=== PATIENT | female | born 1995 | race Caucasian/White ===

== ENCOUNTER 2022-08-15 08:23 | Outpatient (REF) | payer OTHER, SELFPAY ==
[2022-08-15 11:27] LABS: Hematocrit 43.9 % (37.0-47.0); Hemoglobin 14.4 g/dl (12.0-16.0); Mean Corpuscular HGB Conc 32.8 g/dl (31.0-35.0); Mean Corpuscular Hemoglobin 30.9 pg (27.0-33.0); Mean Corpuscular Volume 94.2 fL (80.0-98.0); Mean Platelet Volume 9.8 fL (9.4-12.3); Platelet Count 270 X10*3/uL (160-400); Red Blood Count 4.66 X10*6/uL (4.20-5.50); Red Cell Distribution Width 11.7 % (11.0-16.0)
[2022-08-15 12:12] LABS: Erythrocyte Sedimentation Rate 2 MM/HR (0-20)
[2022-08-15 12:49] LABS: Alanine Aminotransferase 18 U/L (0-31); Albumin Level 4.1 g/dL (3.5-5.0); Alkaline Phosphatase 59 U/L (39-117); Aspartate Amino Transferase 18 U/L (5-31); Bilirubin Direct 0.3 mg/dL (0.0-0.5); Bilirubin Total 0.9 mg/dL (0.0-1.0); Blood Urea Nitrogen 12 mg/dL (9-16); Chloride 103 mmol/L (96-108); Estimated Glomerular Filt Rate > 60; Glucose Random 79 mg/dL (60-115); Potassium 3.8 mmol/L (3.3-5.1); Sodium 140 mmol/L (135-145); Total Protein 6.7 g/dL (6.5-8.0)
[2022-08-15 13:07] LABS: Anion Gap 13 (12-20); Carbon Dioxide 27 mmol/L (22-29)
== END 2022-08-15 08:24 | disposition home or self-care (01) ==
LOC: HO.HMGCLDS 08:23
PROVIDERS: PCP Internal Medicine; Visit Provider Internal Medicine
DX: R10.9 Unspecified abdominal pain (principal)
CPT/HCPCS: 36415; 80048; 80076; 85027; 85652

== ENCOUNTER 2022-10-22 14:22 | Outpatient (AMB) | payer OTHER, SELFPAY ==
--- NOTE | 2022-10-22 15:53 | MHC.OFFWIV ---
Intake Vital Signs 10/22/22 15:55 Height 5 ft 5 in Weight 139 lb BMI 23.1 BP 112/74 Blood Pressure Location Lt brachial Position Sitting Pulse 53 Pulse Source Pulse Oximeter Temp 97.8 F Temp Source Temporal Artery Scan Pulse Oximetry (%) 97 Oxygen Delivery Method Room Air Intake Visit Reasons: EP, abdominal pain, not feeling better` Intake Note: pt is here for c/o upper abd pain, bloating, and states its worse at night and has diarrhea. patient states she was seen in july had blood work and everything came back normal but states nothing has changed. Patient Tobacco Use Status: Never used Tobacco Allergies No Known Allergies Allergy (Verified 10/23/22 06:37) Do you need a note to return to daycare/school/sports/work: No HPI EP, abdominal pain, not feeling better` HPI Details 27-year-old female presents to the office for a sick visit. Patient is been having intermittent abdominal pain for the past month. Initially was treated as an infection, patient reports that the sharp pain subsided but still continues to wake up at night. Mostly she has a cramping sensation. No nausea or vomiting. No weight loss. No fevers or chills. PFSH Social History Patient Tobacco Use Status: Never used Tobacco Physical Exam Vital Signs: Last Vital Signs Temp 97.8 F 10/22/22 15:55 Pulse 53 10/22/22 15:55 BP 112/74 10/22/22 15:55 Pulse Ox 97 10/22/22 15:55 Oxygen Delivery Method Room Air 10/22/22 15:55 BMI result Body Mass Index 23.1 Const General: cooperative and healthy appearing Nutritional Appearance: well nourished Orientation/consciousness: patient oriented x3 Limitations: no limitations HEENT Head: Yes normal to inspection Eyes General: appearance normal, both eyes and all related structures Neck Neck: Yes normal visual inspection Chest Chest palpation & inspection: normal palpation of entire chest wall Resp Effort & Inspection: normal respiratory effort Neuro General: patient oriented x3 Assessment & Plan Assessment & Plan (1) Abdominal pain: Code(s): R10.9 - Unspecified abdominal pain Plan: Patient should be worked up for irritable bowel syndrome. I suggested that she see her primary care and get a referral to a consultative sales associate. Meanwhile PPIs have been added for symptomatic relief. Medications: New pantoprazole 40 mg PO DAILY 30 tabs 0RF Coding Level of Care Code Est Pt Level 3 (25594) Diagnoses Abdominal pain R10.9
[2022-10-22 15:55] VITALS: BP 112/74; PULSE 53; TEMP 36.6; O2SAT 97; BMI 23.1
== END 2022-10-22 16:16 | disposition home or self-care (01) ==
PROVIDERS: PCP Internal Medicine; Visit Provider Internal Medicine
DX: R10.9 Unspecified abdominal pain (principal)
CPT/HCPCS: 99213

== ENCOUNTER 2022-11-11 09:39 | Outpatient (AMB) | payer OTHER, SELFPAY ==
[2022-11-11 10:34] VITALS: BP 110/70; PULSE 88; O2SAT 99; BMI 23.1
--- NOTE | 2022-11-11 10:34 | MHC.PC.OV ---
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 Intake Note: Pt is here today as a New Patient c/o stomach issues and abdominal cramping Allergies No Known Allergies Allergy (Verified 12/08/22 00:25) Medication List - Last Reconciled 11/11/22 by Beatriz Wright MD norgestimate-ethinyl estradiol 0.25-35 mg-mcg 1 tab PO DAILY Tobacco use date assessed: 11/11/22 Dental Screening Dental Screen Date: 11/11/22 Did you have a dental visit in the last 12 months?: Yes Did you have a dental problem in the last 6 months where you did not have access to dental care?: No Was dental information given to patient?: 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 She has been having intermittent episodes of abdominal cramping accompanied by occasional loose stools, bloating sensation, which has been present now for the last several weeks. Currently sees Dr. Carrasco for her routine Pap and pelvic exam, currently up-to-date, [facility] Medical History (Updated 11/11/22 @ 11:07 by Beatriz Wright MD) Abdominal bloating with cramps ASCUS of cervix with negative high risk HPV Surgical History (Updated 11/11/22 @ 11:07 by Beatriz Wright MD) No pertinent past surgical history Family History (Updated 11/11/22 @ 11:06 by Beatriz Wright MD) Other No significant family history Social History Housing: House Patient Tobacco Use Status: Never used Tobacco e-Cigarette/Vaping Use: Never Used service: No Current occupational status: employed Cognitive needs: No Hearing needs: No Vision needs: Yes Female Reproductive History Menstrual Date of last menstrual period: 10/27/22 Questionnaire PHQ-9 Over the last 2 weeks, how often have you been bothered by any of the following problems? 1. Little interest or pleasure in doing things: not at all 2. Feeling down, depressed, or hopeless: not at all 3. Trouble falling or staying asleep, or sleeping too much: several days 4. Feeling tired or having little energy: not at all 5. Poor appetite or overeating: not at all 6. Feeling bad about yourself - or that you are a failure or have let yourself or your family down: not at all 7. Trouble concentrating on things, such as reading the newspaper or watching television: not at all 8. Moving or speaking so slowly that other people could have noticed. Or the opposite - being so fidgety or restless that you have been moving around a lot more than usual: not at all 9. Thoughts that you would be better off or of hurting yourself in some way: not at all Total score: 1 Depression Screening Interpretation: Negative 28611 - PHQ-9 Billing: Yes Source: Developed by Drs. Jonn Pereyra, Sandra Watson, Kevyn Garcia and colleagues, with an educational breanna from [employer]. Thrive Questionnaire Date Thrive assessed: 11/11/22 I am a: Patient What is your living situation today?: I have a steady place to live Within the past 12 months, did the food you bought not last and you didn't have the money to get more?: Never true Within the past 12 months, did you worry whether your food would run out before you got money to buy more?: Never true Do you have trouble paying for medicines?: No Do you have trouble getting transportation to medical appointments?: No Do you have trouble paying your heating and electricity bill?: No Do you have trouble with day-to-day activities such as bathing, preparing meals, shopping, managing finances, etc.?: No Are you currently unemployed and looking for a job?: No Are you interested in more education?: No AUDIT C Alcohol Use Questionnaire (AUDIT-C) 1. How often do you have a drink containing alcohol?: Monthly or less 2. How many drinks containing alcohol do you have on a typical day when you are drinking?: 1 or 2 3. How often do you have six or more drinks on one occasion?: Never Total Score: 1 ALAYNA-7 AMB Questionnaire ALAYNA-7 Date ALAYNA - 7 assessed: 11/11/22 Feeling nervous, anxious, or on edge: 1 = Several days Not being able to stop or control worryin = Not at all Worrying too much about different things: 1 = Several days Trouble relaxin = Not at all Being so restless that it is hard to sit still: 0 = Not at all Becoming easily annoyed or irritable: 0 = Not at all Feeling afraid as if something awful might happen: 0 = Not at all Total ALAYNA-7 score (0-4 normal; 5-9 mild; 10-14 moderate; 15-21 severe): 2 Source: Developed by Drs. Jonn Pereyra, Sandra Watson, Kevyn Garcia and colleagues, with an educational breanna from [employer]. Review of Systems Const Denies body aches, Denies fatigue, Denies fever(s), Denies headache(s) and Denies weakness Eyes Denies change in vision, Denies eye discharge and Denies itchy eyes ENT Denies dizziness, Denies headache(s), Denies nasal congestion, Denies nasal discharge and Denies sore throat Card Denies chest pain, Denies lightheadedness, Denies palpitations and Denies dyspnea Resp Denies chest congestion, Denies cough, Denies dyspnea and Denies wheezing GI Reports as per HPI, Denies melena, Denies hematochezia and Denies heartburn Denies hematuria, Denies urinary frequency, Denies dysuria and Denies urinary urgency Musc Reports no additional complaints Skin/Breast Denies breast pain, Denies breast mass, Denies lesions and Denies rash Neuro Denies dizziness, Denies headache(s) and Denies weakness Psych Reports no additional complaints Endo Denies fatigue, Denies polydipsia, Denies polyuria and Denies palpitations Dioni/Lymph Denies easy bruising Aller/Immun Denies itchy eyes, Denies seasonal rhinorrhea and Denies wheezing Physical exam (Primary Care) Vital Signs: Last Vital Signs Pulse 88 11/11/22 10:34 BP 110/70 11/11/22 10:34 Pulse Ox 99 11/11/22 10:34 Oxygen Delivery Method Room Air 11/11/22 10:34 BMI result Body Mass Index 23.1 Tobacco/Smoking Status: Tobacco use Status Tobacco use date assessed 11/11/22 11/11/22 10:41 Patient Tobacco Use Status Never used Tobacco 11/11/22 10:41 e-Cigarette/Vaping Use Never Used 11/11/22 10:41 PHQ-9: PHQ-9 Score PHQ-9: Total score 1 12/07/22 17:59 Depression Screening Interpretation: Negative Thrive Assessment: Date of Thrive Assessment Date Thrive assessed 11/11/22 11/11/22 10:41 Const General: no acute distress and alert Orientation/consciousness: patient oriented x3 HENMT Head: Yes normocephalic Ears: external ears normal, TM's normal bilaterally and EAC's normal General nose exam: Normal external nose present and No nasal discharge present Face and sinus: Yes face symmetric Mouth: Normal oral and palatal mucosa present and moist mucous membranes Eyes General: appearance normal, both eyes and all related structures Eyelids: Yes eyelids normal Conjunctivae: conjunctivae normal Sclerae: sclerae normal Pupils: Equal, round and reactive pupils present EOM: EOMs intact bilaterally Neck Neck: Yes full ROM, Yes no lymphadenopathy and Yes supple Thyroid: Thyroid normal Chest Breast/axilla palpation: normal palpation of the breasts Resp Effort & Inspection: normal respiratory effort and able to speak in complete sentences Auscultation: clear to auscultation bilaterally Cardio Rate: regular rate Rhythm: regular rhythm Heart sounds: S1 normal heart sound present and S2 normal heart sound present GI Palpation (GI): Soft to palpation, nontender, no guarding and no masses Auscultation: normal bowel sounds General: Yes no CVA tenderness and Yes deferred (Goes to Dr. Carrasco who does her regular pelvic and Pap exam) Back/Spine/Pelvis Back: no CVA tenderness and No back tenderness Skin General skin exam: no rashes or lesions noted Neuro General: patient oriented x3, gait normal, moves all extremities, Normal light touch and pain sensation, no focal motor deficits and CN's II-XI intact bilaterally Cranial nerves: Yes Equal, round and reactive pupils present Cognition (Neuro): normal cognition Gait exam (Neuro): Normal gait present Motor exam (neuro): 5/5 motor strength present throughout Extrem General: Yes normal to inspection, Yes full ROM, Yes no joint enlargement, Yes no pedal edema and Yes normal gait Psych Appearance: grossly normal and well kempt Mental Status: mental status grossly normal Speech and movement: Normal speech and movement present Affect: normal affect Attitude: cooperative Thought process: Normal thought process present Thought content: Normal thought content present Assessment and Plan Assessment & Plan (1) Abdominal bloating with cramps: Code(s): R14.0 - Abdominal distension (gaseous); R10.9 - Unspecified abdominal pain Plan: Advised increase dietary fiber intake, to avoid dairy, trial of dicyclomine 10 mg per tablet to initially take 1 tablet twice a day . Ordered abdominal ultrasound, Gastroenterology consult also obtained (2) History of abnormal cervical Pap smear: Code(s): Z87.42 - Personal history of other diseases of the female genital tract Plan: Followed by her OBGYNDr. Carrasco Orders: Orders Vitamin D 25-OH Total 11/12/22 R14.0 - Abdominal distension (gaseous), R10.9 - Unspecified abdominal pain Comprehensive [place]. Panel Fast 11/12/22 R14.0 - Abdominal distension (gaseous), R10.9 - Unspecified abdominal pain Lipid Panel 11/12/22 R14.0 - Abdominal distension (gaseous), R10.9 - Unspecified abdominal pain US abdomen complete 11/11/22 R14.0 - Abdominal distension (gaseous), R10.9 - Unspecified abdominal pain Referrals Gastroenterology Referral R14.0 - Abdominal distension (gaseous), R10.9 - Unspecified abdominal pain Medications: New dicyclomine 10 mg PO BID 60 caps 0RF Coding Level of Care Code New Pt Level 3 (02658) Diagnoses Abdominal bloating with cramps R14.0; R10.9 History of abnormal cervical Pap smear Z87.42
== END 2022-11-11 11:18 | disposition home or self-care (01) ==
PROVIDERS: Visit Provider Internal Medicine
DX: R14.0 Abdominal distension (gaseous) (principal); R10.9 Unspecified abdominal pain; Z87.42 Personal history of other diseases of the female genital tract
CPT/HCPCS: 99203

== ENCOUNTER 2022-11-12 07:24 | Outpatient (REF) | payer OTHER, SELFPAY ==
[2022-11-12 12:36] LABS: Alanine Aminotransferase 13 U/L (0-31); Albumin Level 4.3 g/dL (3.5-5.0); Alkaline Phosphatase 52 U/L (39-117); Anion Gap 13 (12-20); Aspartate Amino Transferase 19 U/L (5-31); Bilirubin Total 0.7 mg/dL (0.0-1.0); Blood Urea Nitrogen 11 mg/dL (9-16); Calcium 10.1 mg/dL (8.4-10.2); Carbon Dioxide 25 mmol/L (22-29); Chloride 107 mmol/L (96-108); Cholesterol 160 mg/dL (<200); Estimated Glomerular Filt Rate > 60; Glucose Fasting 87 mg/dL (60-99); HDL Cholesterol 80 mg/dL (>40); LDL Cholesterol Calculated 62 mg/dL (<100); Potassium 4.6 mmol/L (3.3-5.1); Sodium 140 mmol/L (135-145); Triglycerides 90 mg/dL (<150)
[2022-11-12 12:44] LABS: Vitamin D 25-OH Total 82.3 ng/mL (>30)
== END 2022-11-12 07:25 | disposition home or self-care (01) ==
LOC: HO.HMGCLDS 07:24
PROVIDERS: PCP Internal Medicine; Visit Provider Internal Medicine
DX: R14.0 Abdominal distension (gaseous) (principal); R10.9 Unspecified abdominal pain
CPT/HCPCS: 36415; 80053; 80061; 82306

== ENCOUNTER 2022-11-27 08:53 | Outpatient (REF) | payer OTHER, SELFPAY | END 2022-11-27 08:54 | disposition home or self-care (01) | LOC: HO.HMGCX 08:53 | PROVIDERS: PCP Internal Medicine; Visit Provider Internal Medicine | DX: R10.9 Unspecified abdominal pain (principal); R14.0 Abdominal distension (gaseous) | CPT/HCPCS: 76700 ==

== ENCOUNTER 2022-12-24 07:50 | Outpatient (REF) | payer OTHER, SELFPAY ==
[2022-12-24 09:52] LABS: MANUAL DIFF FLAG NO
[2022-12-24 10:13] LABS: Basophils Percent Auto 0.8 % (0-2); Eosinophils Absolute Auto 0.1 X10*3/uL (0.0-0.4); Eosinophils Percent Auto 2.1 % (0-4); Hematocrit 43.8 % (37.0-47.0); Hemoglobin 14.8 g/dl (12.0-16.0); Imm Gran Abs Auto 0.01 X10*3/uL (0.00-0.03); Imm Gran Pct Auto 0.3 % (0.0-0.4); Lymphocytes Absolute Auto 1.5 X10*3/uL (1.2-4.9); Lymphocytes Percent Auto 38.6 % (20-40); Mean Corpuscular HGB Conc 33.8 g/dl (31.0-35.0); Mean Corpuscular Volume 91.8 fL (80.0-98.0); Mean Platelet Volume 9.4 fL (9.4-12.3); Monocytes Absolute Auto 0.3 X10*3/uL (0.1-1.2); Monocytes Percent Auto 6.6 % (2-11); Neutrophils Absolute Auto 1.9 x10*3/uL (2.0-8.3); Neutrophils Percent Auto 51.6 % (45-73); Platelet Count 245 X10*3/uL (160-400); Red Blood Count 4.77 X10*6/uL (4.20-5.50); Red Cell Distribution Width 11.7 % (11.0-16.0); White Blood Count 3.8 X10*3/uL (4.8-10.8)
[2022-12-24 10:53] LABS: Erythrocyte Sedimentation Rate 4 MM/HR (0-20)
[2022-12-24 11:07] LABS: Thyroid Stimulating Hormone 0.81 uIU/mL (0.32-4.0)
[2022-12-26 13:14] LABS: Transglutaminase IgA 1.9 U/mL
[2022-12-27 12:33] LABS: Endomysial IgA Antibody Negative (Negative)
== END 2022-12-24 07:51 | disposition home or self-care (01) ==
LOC: HO.LAB 07:50
PROVIDERS: PCP Internal Medicine; Visit Provider Physician Assistant
DX: R14.0 Abdominal distension (gaseous) (principal); R10.9 Unspecified abdominal pain; R19.4 Change in bowel habit; R19.8 Other specified symptoms and signs involving the digestive system and abdomen; A04.8 Other specified bacterial intestinal infections; K52.9 Noninfective gastroenteritis and colitis, unspecified
CPT/HCPCS: 36415; 84443; 85025; 85652; 86231; 86364; 99202

== ENCOUNTER 2022-12-24 07:50 | Outpatient (AMB) | payer OTHER, SELFPAY ==
--- NOTE | 2022-12-24 07:56 | A.OFFVIS_ITS ---
Intake Vital Signs 12/24/22 07:57 Height 5 ft 5 in Weight 139 lb BMI 23.1 BP 107/64 Blood Pressure Location Lt brachial Position Sitting Pulse 96 Intake Visit Reasons: Abdominal pain/distension Intake Note: Patient new consult for abdominal pain/distension. Patient cc: abdominal pain on and off and move to different position on her stomach, and diarrhea in the morning come and go, Histotechnologist Required: No Accompanied by: Self / Same As Patient Allergies No Known Allergies Allergy (Verified 12/24/22 07:55) Medication List - Last Reconciled 12/24/22 by Rosario Ortega PA-C dicyclomine 10 mg PO BID norgestimate-ethinyl estradiol 0.25-35 mg-mcg 1 tab PO DAILY HPI HPI Comments History of Present Illness Details A 27 y/o feamle abdominal bloating- wanders -initially in July RLQ- diarrhea-blood when she wiped-then subsided-- dull pain for about 3 months-went to pcp-[place]- [place]- was given anti bx- it has now shifted-when she distends her stomach feels like gas- but not better after passing gas- She has diarrhea- intermittently- for the past 2 weeks no bloods- 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- in August had U/S- trans/ and abdominal- pap- all negative- She had a panic attack- in the spring- she admits to - feeling like a heart attack- but she is de stressing- FORMERLY [facility], [facility]–1983 Medical History Abdominal bloating with cramps ASCUS of cervix with negative high risk HPV Surgical History No pertinent past surgical history Family History Other No significant family history Social History Housing: House Patient Tobacco Use Status: Never used Tobacco e-Cigarette/Vaping Use: Never Used service: No Current occupational status: employed Cognitive needs: No Hearing needs: No Vision needs: Yes Review of Systems Const All systems reviewed & are unremarkable except as noted in HPI and below Card Denies chest pain GI Reports bloating, Reports loose stools, Denies nausea and Denies vomiting Physical Exam Vital Signs: Last Vital Signs Pulse 96 12/24/22 07:57 BP 107/64 12/24/22 07:57 BMI result Body Mass Index 23.1 Const General: cooperative, healthy appearing, comfortable and no acute distress Orientation/consciousness: patient oriented x3 Limitations: no limitations Resp Effort & Inspection: normal respiratory effort and able to speak in complete sentences Cardio Rate: regular rate Rhythm: regular rhythm Heart sounds: S1 normal heart sound present and S2 normal heart sound present GI Palpation (GI): Soft to palpation and nontender Auscultation: normal bowel sounds Skin General skin exam: no rashes or lesions noted Neuro General: patient oriented x3 Extrem General: Yes full ROM Results Reviewed Results Reviewed: US/US abdomen complete IMPRESSION: Normal exam Assessment & Plan Assessment & Plan (1) Abdominal bloating with cramps: Code(s): R14.0 - Abdominal distension (gaseous); R10.9 - Unspecified abdominal pain Plan: Stool studies, labs, (2) Abdominal pain: Comment: Somewhat difficult to assess-inconsistent Code(s): R10.9 - Unspecified abdominal pain (3) Change in stool habits: Comment: Must rule out infectious/IBD, may have functional Code(s): R19.4 - Change in bowel habit Plan: Labs as well as stool studies to include stool calprotectin Plan labs stool test Orders: Orders Calprotectin, Fecal 12/25/22 R19.7 - Diarrhea, unspecified H pylori Ag Stool 12/25/22 A04.8 - Other specified bacterial intestinal infections Thyroid Stimulating Hormone 12/24/22 R19.8 - Other specified symptoms and signs involving the digestive system and abdomen CDiff Gene PCR 12/25/22 R19.7 - Diarrhea, unspecified GI Panel 12/25/22 R19.7 - Diarrhea, unspecified Complete Blood Count Auto Diff 12/24/22 K52.9 - Noninfective gastroenteritis and colitis, unspecified Endomysial IgA rflx Titer 12/24/22 R19.4 - Change in bowel habit Erythrocyte Sedimentation Rate 12/24/22 R19.7 - Diarrhea, unspecified Transglutaminase IgA 12/24/22 R19.7 - Diarrhea, unspecified Patient Instructions: 27-year-old female multiple GI complaints, pain, and diarrhea, bloating Unable to identify anything specific Will update labs and get stool studies to include CT stool calprotectin process for IBD Encouraged to call questions or concerns Reviewed RIKI Coding Level of Care Code New Pt Level 4 (90401) Diagnoses Abdominal bloating with cramps R14.0; R10.9 Abdominal pain R10.9 Change in stool habits R19.4 Time Spent (min) 40
[2022-12-24 07:57] VITALS: BP 107/64; PULSE 96; BMI 23.1
== END 2022-12-24 09:00 | disposition home or self-care (01) ==
PROVIDERS: PCP Internal Medicine; Visit Provider Physician Assistant
DX: R14.0 Abdominal distension (gaseous) (principal); R10.9 Unspecified abdominal pain; R19.4 Change in bowel habit
CPT/HCPCS: 99204

== ENCOUNTER 2022-12-25 08:54 | Outpatient (REF) | payer OTHER, SELFPAY ==
[2022-12-25 10:41] LABS: CDiff Gene PCR NEGATIVE (Negative)
[2022-12-25 15:06] LABS: Adenovirus F 40/41 Not Detected (Not Detect.); Astrovirus Not Detected (Not Detect.); Campylobacter Not Detected (Not Detect.); Cryptosporidium Not Detected (Not Detect.); Cyclospora cayetanensis Not Detected (Not Detect.); E. coli EAEC Not Detected (Not Detect.); E. coli EPEC Not Detected (Not Detect.); E. coli ETEC Not Detected (Not Detect.); E. coli STEC Not Detected (Not Detect.); Entamoeba histolytica Not Detected (Not Detect.); Giardia lamblia Not Detected (Not Detect.); Norovirus GI/GII Not Detected (Not Detect.); Plesiomonas shigelloides Not Detected (Not Detect.); Rotavirus A Not Detected (Not Detect.); Salmonella Not Detected (Not Detect.); Sapovirus Not Detected (Not Detect.); Shigella sp./EIEC Not Detected (Not Detect.); Vibrio Not Detected (Not Detect.); Vibrio Cholerae Not Detected (Not Detect.); Yersinia enterocolitica Not Detected (Not Detect.)
[2022-12-31 19:08] LABS: Calprotectin, Fecal <5 mcg/g
== END 2022-12-25 08:55 | disposition home or self-care (01) ==
LOC: HO.LNP 08:54
PROVIDERS: Visit Provider Physician Assistant
DX: A04.8 Other specified bacterial intestinal infections (principal); R19.7 Diarrhea, unspecified
CPT/HCPCS: 83993; 87338; 87493; 87507

== ENCOUNTER 2023-01-22 07:27 | Outpatient (AMB) | payer OTHER, SELFPAY ==
--- NOTE | 2023-01-22 07:38 | MHC.OFFVIS ---
Intake Vital Signs 01/22/23 07:42 Height 5 ft 5 in Weight 139 lb BMI 23.1 BP 129/71 Pulse 97 Intake Visit Reasons: follow up Intake Note: Patient follow up Patient cc: abdominal pain, loose BM in the morning, and in the afternoon BM are dark. 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 Bloating seems to be the biggest issue for her discomfort by end of day She is unable to identify anything specific She has low abdominal cramping- resolves after BM- She eats a healthy diet- No nausea, vomiting fever chills PFSH Medical History Abdominal bloating with cramps ASCUS of cervix with negative high risk HPV Surgical History No pertinent past surgical history Family History Other No significant family history Social History Housing: House Patient Tobacco Use Status: Never used Tobacco e-Cigarette/Vaping Use: Never Used service: No Current occupational status: employed Cognitive needs: No Hearing needs: No Vision needs: Yes Review of Systems Const All systems reviewed & are unremarkable except as noted in HPI and below GI Reports bloating and Reports loose stools Physical Exam Vital Signs: Last Vital Signs Pulse 97 01/22/23 07:42 BP 129/71 01/22/23 07:42 BMI result Body Mass Index 23.1 Const General: cooperative, healthy appearing, comfortable and no acute distress Orientation/consciousness: patient oriented x3 Limitations: no limitations Eyes Sclerae: sclerae normal Resp Effort & Inspection: normal respiratory effort and able to speak in complete sentences Skin General skin exam: no rashes or lesions noted Neuro General: patient oriented x3 Extrem General: Yes full ROM Psych Appearance: grossly normal and well kempt Mental Status: mental status grossly normal Speech and movement: Normal speech and movement present Affect: normal affect Attitude: cooperative Thought process: Normal thought process present Thought content: Normal thought content present Results Reviewed Results Reviewed: US/US abdomen complete IMPRESSION: Normal exam. Assessment & Plan Assessment & Plan (1) Abdominal bloating with cramps: Comment: SIBO Code(s): R14.0 - Abdominal distension (gaseous); R10.9 - Unspecified abdominal pain Plan: SIBO-order sent (2) Change in stool habits: Comment: Very pleasant, Must rule out infectious/IBD, may have functional Code(s): R19.4 - Change in bowel habit Plan: Diagnostic colonoscopy MiraLax Gatorade prep Discussed procedure, indications, need for escorted out due to anesthesia Plan Diagnostic colonoscopy- R/O infectious, IBD other underlying causes sx MiraLax Gatorade prep Orders: Orders Complete Blood Count Auto Diff 01/22/23 R10.9 - Unspecified abdominal pain, R14.0 - Abdominal distension (gaseous), R19.4 - Change in bowel habit Colonoscopy - GI Use Only 01/22/23 R10.9 - Unspecified abdominal pain, R14.0 - Abdominal distension (gaseous), R19.4 - Change in bowel habit Patient Instructions: Diagnostic colonoscopy MiraLax Gatorade prep, reviewed literature given Discussed procedure, indications, need for escorted out due to anesthesia she will call result SIBO CBC Encouraged to call with questions or concerns Coding Level of Care Code Est Pt Level 3 (57403) Diagnoses Abdominal bloating with cramps R14.0; R10.9 Change in stool habits R19.4 Time Spent (min) 30
[2023-01-22 07:42] VITALS: BP 129/71; PULSE 97; BMI 23.1
== END 2023-01-22 08:38 | disposition home or self-care (01) ==
PROVIDERS: PCP Internal Medicine; Visit Provider Physician Assistant
DX: R14.0 Abdominal distension (gaseous) (principal); R10.9 Unspecified abdominal pain; R19.4 Change in bowel habit
CPT/HCPCS: 99213

== ENCOUNTER → 2023-01-22 07:27 | Outpatient (BNVA) | payer OTHER, SELFPAY | PROVIDERS: PCP Internal Medicine; Visit Provider Physician Assistant | DX: R14.0 Abdominal distension (gaseous) (principal); R10.9 Unspecified abdominal pain; R19.4 Change in bowel habit | CPT/HCPCS: 99212 ==

== ENCOUNTER 2023-04-13 07:15 | Outpatient (REF) | payer OTHER, SELFPAY ==
[2023-04-13 07:27] LABS: MANUAL DIFF FLAG NO
[2023-04-13 07:49] LABS: Basophils Percent Auto 0.4 % (0-2); Eosinophils Absolute Auto 0.1 X10*3/uL (0.0-0.4); Eosinophils Percent Auto 2.7 % (0-4); Hematocrit 41.4 % (37.0-47.0); Imm Gran Abs Auto 0.01 X10*3/uL (0.00-0.03); Imm Gran Pct Auto 0.2 % (0.0-0.4); Lymphocytes Absolute Auto 2.4 X10*3/uL (1.2-4.9); Lymphocytes Percent Auto 48.9 % (20-40); Mean Corpuscular HGB Conc 33.8 g/dl (31.0-35.0); Mean Corpuscular Hemoglobin 30.7 pg (27.0-33.0); Mean Corpuscular Volume 90.8 fL (80.0-98.0); Mean Platelet Volume 9.5 fL (9.4-12.3); Monocytes Absolute Auto 0.4 X10*3/uL (0.1-1.2); Monocytes Percent Auto 8.2 % (2-11); Neutrophils Absolute Auto 1.9 x10*3/uL (2.0-8.3); Neutrophils Percent Auto 39.6 % (45-73); Platelet Count 241 X10*3/uL (160-400); Red Blood Count 4.56 X10*6/uL (4.20-5.50); Red Cell Distribution Width 12.3 % (11.0-16.0); White Blood Count 4.9 X10*3/uL (4.8-10.8)
== END 2023-04-13 07:16 | disposition home or self-care (01) ==
LOC: HO.LAB 07:15
PROVIDERS: PCP Internal Medicine; Visit Provider Physician Assistant
DX: R19.4 Change in bowel habit (principal); R14.0 Abdominal distension (gaseous); R10.9 Unspecified abdominal pain
CPT/HCPCS: 36415; 85025

== ENCOUNTER 2023-08-19 08:01 | Day surgery (SDC) | payer OTHER, SELFPAY ==
[2023-08-17 14:29] VITALS: BMI 23.1
--- NOTE | 2023-08-18 10:32 | HO.ANESPROP2 ---
Documented by User: Liliam Lee NP 08/18/23 10:32 HPI - Anesthesia Eval Consult details Narrative: 28yo F for Colonoscopy [facility] Active Problems Active Problems: All Active Problems Change in stool habits (Acute) Abdominal bloating with cramps (Acute) ASCUS of cervix with negative high risk HPV (Acute) Abdominal pain (Acute) Past Medical History Medical History Abdominal bloating with cramps ASCUS of cervix with negative high risk HPV Family History Family History Other No significant family history Surgical History Surgical History No pertinent past surgical history Social History Social History Housing: House Patient Tobacco Use Status: Never used Tobacco e-Cigarette/Vaping Use: Never Used Advance Directives: No Advance Directives Information Provided: Yes service: No Current occupational status: employed Cognitive needs: No Hearing needs: No Vision needs: Yes Meds Allergies Allergy/AdvReac Type Severity Reaction Status Date / Time No Known Allergies Allergy Verified 01/22/23 07:38 Home Medications ?Medication ?Instructions ?Recorded ?Confirmed ?Last Taken ?Type norgestimate 0.25 mg-ethinyl 1 tab PO DAILY 08/15/22 12/24/22 Unknown History estradiol 35 mcg tablet Exam Height,Weight and Vital Signs: Height 5 ft 5 in Weight 63.049 kg Assessment and Plan Assessment Anesthesia Assessment: Chart Reviewed Documented by User: Angela Andujar MD 08/19/23 08:23 PMFSH Past Medical History Medical History Abdominal bloating with cramps ASCUS of cervix with negative high risk HPV Family History Family History Other No significant family history Family history of problems with anesthesia: No Surgical History Surgical History No pertinent past surgical history History of Problems with Anesthesia: No Social History Social History Housing: House Patient Tobacco Use Status: Never used Tobacco e-Cigarette/Vaping Use: Never Used Advance Directives: No Advance Directives Information Provided: Yes service: No Current occupational status: employed Cognitive needs: No Hearing needs: No Vision needs: Yes Meds Allergies Allergy/AdvReac Type Severity Reaction Status Date / Time No Known Allergies Allergy Verified 01/22/23 07:38 Home Medications ?Medication ?Instructions ?Recorded ?Confirmed ?Last Taken ?Type norgestimate 0.25 mg-ethinyl 1 tab PO DAILY 08/15/22 12/24/22 Unknown History estradiol 35 mcg tablet Exam Airway Mallampati Class: II TM Dist: >3cm Neck ROM: Full Heart: rrr Lungs: cta Assessment and Plan Assessment Anesthesia Assessment: Anesthesia Plan Discussed Final Anesthetic Review Family History of Problems with Anesthesia: No History of Problems with Anesthesia: No NPO: Yes ASA Class: II Final Preanesthetic Review: No Changes in Pt Med Stat, Meds/Allgs Chart Reviewed, Consent Obtained/Reviewed and Anes Risks/Benef Reviewed Patient Risk: Low Procedure Risk: Low Anesthetic Plan Anesthetic Plan: MAC: Disposition: Standard PACU
[2023-08-19 08:04] VITALS: BP 132/88; PULSE 92; RESP 20; TEMP 36.4; O2SAT 98; BMI 23.3
[2023-08-19] MEDS: Lactated Ringers 1,000 ML 100 ML IVCONT (08:25)
[2023-08-19 08:36] LABS: UPreg QC Valid YES; Urine Pregnancy NEGATIVE (NEGATIVE)
--- NOTE | 2023-08-19 09:23 | MHC.SHP ---
Pre-Procedural Eval Section A - 24 Hr Update-Section A only Date of Service: 08/19/23 Section B - Complete if H&P > 30 days Chief Complaint: Abdominal distension (gaseous) Relevant Family History (Specify if Yes): No Relevant Social History: None Present Medications: see Short Stay Collaborative assessment Medical History: Significant History (Abdominal bloating with cramps ASCUS of cervix with negative high risk HPV) History of Previous Operations: No relevant previous surgery Allergies: Allergies Allergy/AdvReac Type Severity Reaction Status Date / Time No Known Allergies Allergy Verified 01/22/23 07:38 Review of Systems Sugical H&P ROS: Negative: Constitution, Cardiovascular, Respiratory, Neurological, Psychiatric, Hem-Onc, Allergic/Immunologic, Gastrointestinal, Genitourinary, Musculoskeletal, Integumentary, Endocrine and Eyes/Ears/Nose/Throat Exam Surgical H&P Exam: Normal: HEENT, Normal: Heart, Normal: Lungs, Normal: Extremities, Normal: Abdomen, Normal: Skin and Normal: Neurological Plan Diagnosis/Plan: Unchanged I have reviewed the history and physical and performed a pertinent physical examination on my patient. No changes have occurred unless specified. Time Spent With Patient Time: Total time managing care of this patient today ____ minutes.
--- NOTE | 2023-08-19 09:35 | P.OP_ITS ---
Operative Note Operative Note Date of Service: 08/19/23 Narrative: Operative Information Procedure Description: Colonoscopy Indication: abdominal pain and change in bowel habits Anesthesia: MAC COLONOSCOPY Instrument: Olympus variable stiffness pediatric scope 190L Colonoscopy Monitoring: Vital signs and clinical assessment, continuous EKG monitoring, Pulse oximetry, Carbon Dioxide monitoring and blood pressure monitoring were done throughout the procedure. Colon withdrawal time was 12 minutes. Procedure: The patient was placed in the left lateral decubitis position and pre-procedure medications were administered. After a digital rectal examination of the ano-rectum, the video colonoscope was inserted into the rectum and advanced through the colon to the cecum/TI. The colonoscope was slowly withdrawn in a retrograde panoramic fashion and the colon mucosa was carefully examined including a retroflexed view of the rectum. Findings and interventions are described below. Procedure Difficulty: easy Findings: Terminal Ileum-normal, bx taken Random Bx taken from right, left and rectum with cold forceps Cecum: 6-7 mm sessile polyp removed with cold snare Ascending Colon: x2 sessile polyps 10 mm removed with cold snare Transverse Colon -normal Descending Colon:normal Sigmoid Colon: normal Rectum: Retroflexion with small internal hemorrhoids seen, grade I Anorectum - normal Intervention: cold snare and cold forceps Colon preparation: Frederick Bowel Preparation Scale Right colon; 3 Transverse colon: 3 Left colon; 3 (0 = Unprepared colon segment with mucosa not seen due to solid stool that cannot be cleared. 1 = Portion of mucosa of the colon segment seen, but other areas of the colon segment not well seen due to staining, residual stool and/or opaque liquid. 2 = Minor amount of residual staining, small fragments of stool and/or opaque liquid, but mucosa of colon segment seen well. 3 = Entire mucosa of colon segment seen well with no residual staining, small fragments of stool or opaque liquid) Impression and Post Procedure Diagnosis: colon polyps internal hemorrhoids Plan: High fiber diet leaflet Avoid straining at stool, epsom salts and sitz bath, anusol supps or cream Repeat Colonoscopy in 3 years or earlier if clinically indicated Above findings were reviewed with the patient and relevant handouts were provided if indicated.
[2023-08-19 09:59] VITALS: BP 106/57; PULSE 72; RESP 16; TEMP 36.7; O2SAT 98
[2023-08-19 10:14] VITALS: BP 117/76; PULSE 55; RESP 16; TEMP 37; O2SAT 100
== END 2023-08-19 10:49 | disposition home or self-care (01) ==
PROVIDERS: Nurse Practitioner; PCP Internal Medicine; Visit Provider Internal Medicine Gastroenterology
PROC: 0DJD8ZZ Inspection of Lower Intestinal Tract, Via Natural or Artificial Opening Endoscopic (ICD-10-PCS; CPT 45378; principal; 2023-08-19 09:10)
DX: R19.4 Change in bowel habit (principal); R10.9 Unspecified abdominal pain; D12.2 Benign neoplasm of ascending colon; K63.5 Polyp of colon; K64.0 First degree hemorrhoids; D47.02 Systemic mastocytosis; R14.0 Abdominal distension (gaseous); Z79.899 Other long term (current) drug therapy
CPT/HCPCS: 45385; 45380; 81025; 88305; 88342; J2704

== ENCOUNTER → 2023-08-19 08:01 | Outpatient (BNV) | payer OTHER, SELFPAY | PROVIDERS: PCP Internal Medicine; Visit Provider Internal Medicine Gastroenterology | DX: R19.5 Other fecal abnormalities (principal); R10.9 Unspecified abdominal pain; K64.0 First degree hemorrhoids; D12.2 Benign neoplasm of ascending colon; K62.1 Rectal polyp | CPT/HCPCS: 45380; 45385 ==